=== PATIENT | male | born 1965 | race Two or more races ===

== ENCOUNTER 2021-02-26 20:10 | Inpatient (IN) | payer MEDICAID, SELFPAY ==
[~2021-02-26] VITALS: Ht 175.3 cm; Wt 82.1 kg
--- NOTE | 2021-02-26 23:30 | NUR ---
MESSAGED DR ALMEIDA EARLIER TO OBTAIN ADMISSION ORDERS FOR THE PATIENT. MD AWARE AND STATED HE WILL PUT THE ORDER LATER AND TO MAINTAIN PATIENT O2 > 90% FOR NOW.
[2021-02-26] MEDS ORDERED: LOV40I SUBQ (23:46)
[2021-02-26] MEDS ORDERED: [UNRECOGNIZED DRUG - CODE] IV (23:46)
[2021-02-26] MEDS ORDERED: BENZ-196 PO (23:46)
[2021-02-26] MEDS ORDERED: ROC2I IV (23:46)
[2021-02-26] MEDS ORDERED: FAMO-90 IVP (23:46)
[2021-02-26] MEDS ORDERED: PRED5TAB7 PO (23:46)
[2021-02-26] MEDS ORDERED: [UNRECOGNIZED DRUG - CODE] PO (23:46)
[2021-02-26] MEDS ORDERED: AZIT500P1 IV (23:46)
[2021-02-26] MEDS ORDERED: ALBU0.0912 IH (23:46)
[2021-02-26] MEDS ORDERED: DEXA10SY IVP (23:46)
[2021-02-26] MEDS ORDERED: DOXY-487 PO (23:46)
--- NOTE | 2021-02-26 23:48 | NUR ---
THIS IS AN ADMISSION NOTE FOR A 55 YEAR OLD MALE PATIENT OF DOCTOR JUAN PABLO WITH TRANSFER FROM [facility] FOR TREATMENT OF COVID PNA. HIS HISTORY IS BRIEF WITHOUT MEDICAL CONDITIONS AND HE HAS NOT BEEN TAKING MEDICATION FOR ANY CONDITIONS OTHER THAN THIS COVID 19 EPISODE HE WAS GIVEN VEKLURY, AZITHROMYCIN, DECADRON AND ROCEPHIN. AT [facility] HE REQUIRES OXYGEN AT 6 LITERS VIA FACE MASK. HE WAS ATTENDED BY DOCTOR PAGE IN THE EMERGENCY DEPARTMENT PRIOR TO TRANSFER FOR FURTHER CARE AT [facility]. JASPREET ISIDRO RN
[2021-02-27] VITALS: BP 116/84
[2021-02-27] MEDS ORDERED: DOCUSATE SODIUM 100 MG GELCAP PO PRN (00:20)
[2021-02-27] MEDS ORDERED: ONDANSETRON 4 MG/2 ML VIAL IM/IVP PRN (00:20)
[2021-02-27] MEDS ORDERED: guaiFENesin DM 200/20 MG-10 ML 10 ML UDC PO PRN (00:20)
[2021-02-27] MEDS ORDERED: HYDROcodone/APAP 7.5/325 MG 1 TAB PO PRN (00:20)
[2021-02-27] MEDS ORDERED: POTASSIUM CHLORIDE 10 MEQ TABER PO PRN (00:20)
[2021-02-27] MEDS ORDERED: ALBUTEROL HFA MDI 90 MCG/ACTUATION 8 GM INH PRN (00:25)
[2021-02-27] MEDS ORDERED: remdesivir COMMUNICATION ORDER 1 EA MISC MC PRN (00:25)
[2021-02-27 01:00] LABS: HEMOGLOBIN 13.7 g/dL (12.0-18.0); MEAN CORPUSCULAR HEMOGLOBIN 30 pg (27-31); MEAN CORPUSCULAR HGB CONC 34 g/dL (33-37); MEAN CORPUSCULAR VOLUME 87.3 fL (80-94); PLATELET COUNT (AUTO) 487 K/uL (140-450); RED BLOOD CELL COUNT(AUTO) 4.58 MIL/uL (4.20-6.10); RED CELL DISTRIBUTION WIDTH 13.5 % (11.6-13.7); WHITE BLOOD COUNT (AUTO) 16.2 K/uL (4.8-10.8)
[2021-02-27 01:17] LABS: LYMPHOCYTES % (MANUAL) 7 % (20-46); MONOCYTES % (MANUAL) 4 % (5-12)
[2021-02-27 01:20] LABS: ALBUMIN 2.2 g/dL (3.4-5.0); CARBON DIOXIDE 30.4 mmol/L (21-32); POTASSIUM 4.4 mmol/L (3.5-5.1); TOTAL BILIRUBIN 0.3 mg/dL (0.0-1.0)
[2021-02-27 01:27] LABS: CHOL/HDL RATIO 9.2 (1-4.5); FREE T4 (FREE THYROXINE) 1.01 ng/dL (0.76-1.46); MAGNESIUM 2.5 mg/dL (1.8-2.4); PHOSPHORUS 3.5 mg/dL (2.5-4.9); THYROID STIMULATING HORMONE 0.3 uIU/mL (0.34-3.74)
[2021-02-27 02:11] LABS: PROTHROMBIN TIME 10.9 secs (10.8-13.4)
[2021-02-27] MEDS: NACL 0.9% 1,000 ML IV SCH ×2 (02:37→17:00)
[2021-02-27] MEDS: methylPREDNISolone SS 40 MG/ML VIAL IVP SCH ×3 (02:37→21:00)
[2021-02-27] MEDS: ACETAMINOPHEN 325 MG TAB PO PRN (02:41)
[2021-02-27 03:48] LABS: APPEARANCE,URINE CLEAR (CLEAR); BILIRUBIN,URINE NEGATIVE (NEGATIVE); BLOOD, URINE NEGATIVE (NEGATIVE); COLOR,URINE YELLOW (YELLOW); LEUKOCYTE ESTERASE ,URINE NEGATIVE (NEGATIVE); NITRITE, URINE NEGATIVE (NEGATIVE); UGLUCOSE NEGATIVE (NEGATIVE)
[2021-02-27 04:00] VITALS: BP 94/51
[2021-02-27 04:16] LABS: BARBITURATE, URINE NEGATIVE ng/ml (NEG <=200); BENZODIAZEPINE, URINE NEGATIVE ng/mL (NEG <=200); CANNABINOID, URINE NEGATIVE ng/mL (NEG <=50); COCAINE, URINE NEGATIVE ng/mL (NEG <=300); OPIATE, URINE NEGATIVE ng/mL (NEG <=2000); PHENCYCLIDINE SCREEN,URINE NEGATIVE ng/mL (NEG <=25)
--- NOTE | 2021-02-27 07:04 | NUR ---
PATIENT HAS BEEN SCREENED AND CATEGORIZED MODERATE NUTRITION RISK. PATIENT WILL BE SEEN WITHIN 3-5 DAYS OF ADMISSION. 03/02/21-03/04/21 GUILLERMINA MTZ MS, RDN
--- NOTE | 2021-02-27 07:10 | NUR ---
PATIENT SLEEPING. NO ACUTE DISTRESS NOTED. PATIENT 6L NC. PATIENT O2 SATING AT 92%. CALL LIGHT WITHIN REACH. ALL SAFETY MEASURES IN PLACE. WILL CONTINUE TO MONITOR.
--- NOTE | 2021-02-27 07:25 | NUR ---
Handoff with NELSON Araujo. Kurt Veloz RN
[2021-02-27 08:00] VITALS: BP 100/60
[2021-02-27] MEDS ORDERED: remdesivir CLINICAL MONITORING 1 EA MISC MC PRN (08:25)
[2021-02-27] MEDS ORDERED: REMDESIVIR. 200 MG in NACL 0.9% 100 ML IV SCH (09:00)
[2021-02-27] MEDS: PANTOPRAZOLE 40 MG TABEC PO SCH (09:12)
[2021-02-27] MEDS: ASCORBIC ACID 500 MG TAB PO SCH (09:12)
[2021-02-27] MEDS: ZINC SULF 220 MG CAP PO SCH (09:12)
--- NOTE | 2021-02-27 09:42 | NUR ---
PATIENT AWAKE AND ALERT. NO ACUTE DISTRESS NOTED. PATIENT ON 6 L NC. PATIENT O2 SATING 92%. SCHEDULED MEDICATION GIVEN. ALL SAFETY MEASURES IN PLACE. CALL LIGHT WITHIN REACH. WILL CONTINUE TO MONITOR.
--- NOTE | 2021-02-27 11:10 | NUR ---
PATIENT AWAKE AND ALERT. NO ACUTE DISTRESS NOTED. PATIENT ON 12 L NC. PATIENT O2 SATING 95%. ALL SAFETY MEASURES IN PLACE. CALL LIGHT WITHIN REACH. WILL CONTINUE TO MONITOR.
[2021-02-27 12:00] VITALS: BP 93/61
--- NOTE | 2021-02-27 13:41 | NUR ---
PATIENT AWAKE AND ALERT. NO ACUTE DISTRESS NOTED. PATIENT ON 10 L NC. PATIENT O2 SATING 93%. ALL SAFETY MEASURES IN PLACE. CALL LIGHT WITHIN REACH. WILL CONTINUE TO MONITOR.
--- NOTE | 2021-02-27 15:48 | NUR ---
PATIENT AWAKE AND ALERT. NO ACUTE DISTRESS NOTED. PATIENT ON 8 L NC. PATIENT O2 SATING 96%. ALL SAFETY MEASURES IN PLACE. CALL LIGHT WITHIN REACH. WILL CONTINUE TO MONITOR
[2021-02-27 16:00] VITALS: BP 105/66
--- NOTE | 2021-02-27 17:38 | NUR ---
PATIENT AWAKE AND ALERT. NO ACUTE DISTRESS NOTED. PATIENT WATCHING TV. PATIENT DENIES PAIN AT THIS TIME. PATIENT ON 8 L NC. PATIENT O2 SATING 95%. ALL SAFETY MEASURES IN PLACE. CALL LIGHT WITHIN REACH. WILL CONTINUE TO MONITOR.
--- NOTE | 2021-02-27 19:25 | NUR ---
ENDORSED TO MASKING MACHINE OPERATOR NURSE FOR CONTINUITY OF CARE. PATIENT STABLE.
[2021-02-27 20:00] VITALS: BP 100/61
--- NOTE | 2021-02-27 21:10 | NUR ---
PT RESTING COMFORTABLY IN BED TALKING ON PHONE PT CURRENTLY ON 6L CURAPLEX (NC) PT DENIES SOB AT THIS TIME WILL CONTINUE TO MONITOR
--- NOTE | 2021-02-27 23:25 | NUR ---
PATIENT AWAKE ALERT SLOVENIAN SPEAKING NOT SHORT OF BREATH HAS 8 LITERS OF 02 SAT 98%. lungs diminish on monitor sinus heart rate 60.patient has right arm with 20 ga. infusing n.s 60 hour. temp 99.1 patient has no cough no c/o of pain. patient is covid +.and has pneumonia.
[2021-02-28] VITALS: BP 110/64
--- NOTE | 2021-02-28 02:30 | NUR ---
PT SLEEPING COMFORTABLY W/ NO DISTRESS NOTED WILL CONTINUE TO MONITOR
[2021-02-28] MEDS: NACL 0.9% 1,000 ML IV SCH ×2 (02:42→20:35)
[2021-02-28 04:00] VITALS: BP 115/66
[2021-02-28 07:06] LABS: T4 (THYROXINE) 6.7 ug/dL (4.5-12.0)
--- NOTE | 2021-02-28 07:15 | NUR ---
RECEIVE REPORT FROM WATER VALVE REPAIRER NURSE FOR CONTINUITY OF CARE. PATIENT AWAKE AND ALERT. NO ACUTE DISTRESS NOTED. PATIENT ON 5 L NC. PATIENT O2 SATING 93%. PATIENT DENIES PAIN AT THIS TIME. CALL LIGHT WITHIN REACH. ALL SAFETY MEASURES IN PLACE. WILL CONTINUE TO MONITOR.
[2021-02-28 07:17] LABS: BASOPHILS % (AUTO) 0.1 % (0.0-2.0); HEMATOCRIT 42.4 % (36-52); HEMOGLOBIN 14.4 g/dL (12.0-18.0); LYMPHOCYTES % (AUTO) 6.9 % (20.5-51.1); MEAN CORPUSCULAR HEMOGLOBIN 30 pg (27-31); MEAN CORPUSCULAR HGB CONC 34 g/dL (33-37); MEAN CORPUSCULAR VOLUME 88.1 fL (80-94); MONOCYTES # (AUTO) 0.6 K/uL (0.8-1.0); NEUTROPHILS # (AUTO) 12.6 K/uL (1.8-7.7); PLATELET COUNT (AUTO) 569 K/uL (140-450); RED BLOOD CELL COUNT(AUTO) 4.81 MIL/uL (4.20-6.10); RED CELL DISTRIBUTION WIDTH 13.8 % (11.6-13.7); WHITE BLOOD COUNT (AUTO) 14.2 K/uL (4.8-10.8)
[2021-02-28 07:29] LABS: ALBUMIN 2.3 g/dL (3.4-5.0); ANION GAP 9.8 (8-16); CARBON DIOXIDE 30.3 mmol/L (21-32); CREATININE 0.8 mg/dL (0.6-1.3); POTASSIUM 5.1 mmol/L (3.5-5.1); TOTAL BILIRUBIN 0.4 mg/dL (0.0-1.0)
[2021-02-28 08:00] VITALS: BP 94/55
[2021-02-28] MEDS: ZINC SULF 220 MG CAP PO SCH (09:14)
[2021-02-28] MEDS: PANTOPRAZOLE 40 MG TABEC PO SCH (09:14)
[2021-02-28] MEDS: ASCORBIC ACID 500 MG TAB PO SCH (09:14)
[2021-02-28] MEDS: methylPREDNISolone SS 40 MG/ML VIAL IVP SCH ×2 (09:15→20:27)
--- NOTE | 2021-02-28 09:33 | NUR ---
PATIENT AWAKE AND ALERT. NO ACUTE DISTRESS NOTED. PATIENT ON 7 L NC. PATIENT O2 SATING 90%. PATIENT DENIES PAIN AT THIS TIME. SCHEDULED MEDICATION GIVEN. CALL LIGHT WITHIN REACH. ALL SAFETY MEASURES IN PLACE. WILL CONTINUE TO MONITOR.
--- NOTE | 2021-02-28 09:54 | NUR ---
RECEIVED CALL FROM LAB FOR CRITICAL LAB REPORTING MRSA NARES POSITIVE. INFORMED NURSE AMIRA.
--- NOTE | 2021-02-28 09:55 | NUR ---
NOTIFIED DR. BARAHONA OF PATIENT TESTING POSITIVE FOR MRSA IN THE NARES.
--- NOTE | 2021-02-28 11:48 | NUR ---
PATIENT AWAKE AND ALERT. NO ACUTE DISTRESS NOTED. PATIENT ON 6 L NC. PATIENT O2 SATING 90%. PATIENT DENIES PAIN AT THIS TIME. CALL LIGHT WITHIN REACH. ALL SAFETY MEASURES IN PLACE. WILL CONTINUE TO MONITOR.
[2021-02-28 12:00] VITALS: BP 96/64
[2021-02-28] MEDS: REMDESIVIR. 100 MG in NACL 0.9% 100 ML IV SCH (12:11)
--- NOTE | 2021-02-28 13:24 | NUR ---
PATIENT SLEEPING. BREATHING EVEN AND UNLABORED. NO ACUTE DISTRESS NOTED. PATIENT ON 6 L NC. PATIENT O2 SATING 90. CALL LIGHT WITHIN REACH. ALL SAFETY MEASURES IN PLACE. WILL CONTINUE TO MONITOR.
--- NOTE | 2021-02-28 15:30 | NUR ---
PATIENT AWAKE AND ALERT. NO ACUTE DISTRESS NOTED. PATIENT ON 6 L NC. PATIENT O2 SATING 92%. PATIENT DENIES PAIN AT THIS TIME. CALL LIGHT WITHIN REACH. ALL SAFETY MEASURES IN PLACE. WILL CONTINUE TO MONITOR.
[2021-02-28 16:00] VITALS: BP 107/73
--- NOTE | 2021-02-28 17:39 | NUR ---
PATIENT AWAKE AND ALERT. NO ACUTE DISTRESS NOTED. PATIENT ON 6 L NC. PATIENT O2 SATING 91%. PATIENT DENIES PAIN AT THIS TIME. PARTS CONTROL CLERK AT BEDSIDE AIDING PATIENT WITH ADLS. CALL LIGHT WITHIN REACH. ALL SAFETY MEASURES IN PLACE. WILL CONTINUE TO MONITOR.
--- NOTE | 2021-02-28 19:15 | NUR ---
ENDORSED TO BOOK STORE ASSOCIATE NURSE FOR CONTINUITY OF CARE. PATIENT STABLE.
[2021-02-28 20:00] VITALS: BP 106/65
[2021-02-28] MEDS: ZOLPIDEM 5 MG TAB PO PRN (22:45)
--- NOTE | 2021-02-28 22:50 | NUR ---
PT FOUND ON 10LNC W/ SPO2 < 90% PT WAS REPOSITIONED AND SPO2 92% AND SLOWLY CLIMBING WILL CONTINUE TO MONITOR
--- NOTE | 2021-02-28 23:23 | NUR ---
Assumed care. A/O x 4. On O2 6 liters tolerating well. 2238 C/O difficult breath. O2 = 85%. We have increased the O2 to 10 liters. Despite the increase in O2., Sats remain 85%. RT has been notified. RT has been able to work with him. O2 level at this time is 96% Pt is resting comfortably. Will continue to monitor.
--- NOTE | 2021-02-28 23:51 | NUR ---
Presently O2 sat is 100%. Pt is comfortably. He did receive a sleeping pill 2/2 to inability to sleep. We shall decrease the O2 supply every so often to keep the sats at acceptable levels. Will continue to monitor.
[2021-03-01] VITALS: BP 116/74
--- NOTE | 2021-03-01 02:57 | NUR ---
PT SLEEPING COMFORTABLY ON 10LNC AND WAS TITRATED TO 8LNC W/ SPO2 96% 5MIN POST TITRATION PT TOLERATING TITRATION WELL AT THIS TIME WILL CONTINUE TO MONITOR
[2021-03-01 04:00] VITALS: BP 106/75
--- NOTE | 2021-03-01 05:39 | NUR ---
He has been titrated down to 4 liters of Oxygen. He is comfortable, and the Sats are between 91% and 92%. Will continue to monitor. Should he go any lower in sats, we shall increase the liters of oxygen. Will continue monitor.
--- NOTE | 2021-03-01 06:26 | NUR ---
He is sating 94% on 4 liters of oxygen. Will continue to monitor.
[2021-03-01 06:38] LABS: BASOPHILS % (AUTO) 0.1 % (0.0-2.0); EOSINOPHILS % (AUTO) 0.1 % (0.0-4.0); LYMPHOCYTES # (AUTO) 1.2 K/uL (2.0-11.5); LYMPHOCYTES % (AUTO) 7.7 % (20.5-51.1); MEAN CORPUSCULAR HEMOGLOBIN 30 pg (27-31); MEAN CORPUSCULAR HGB CONC 34 g/dL (33-37); MONOCYTES # (AUTO) 1.1 K/uL (0.8-1.0); MONOCYTES % (AUTO) 6.9 % (1.7-9.3); NEUTROPHILS # (AUTO) 13.8 K/uL (1.8-7.7); NEUTROPHILS % (AUTO) 85.2 % (42.2-75.2); PLATELET COUNT (AUTO) 614 K/uL (140-450); RED CELL DISTRIBUTION WIDTH 13.5 % (11.6-13.7); WHITE BLOOD COUNT (AUTO) 16.2 K/uL (4.8-10.8)
[2021-03-01 06:56] LABS: ALBUMIN 2.1 g/dL (3.4-5.0); ANION GAP 11.1 (8-16); CARBON DIOXIDE 28.7 mmol/L (21-32); CREATININE 0.9 mg/dL (0.6-1.3); POTASSIUM 5.8 mmol/L (3.5-5.1); TOTAL BILIRUBIN 0.6 mg/dL (0.0-1.0)
--- NOTE | 2021-03-01 07:05 | NUR ---
RECEIVED PT FROM HEAD OF MATHEMATICS NURSE. PT STABLE. NO S/S OF DISTRESS. BREATHING SYMMETRICAL. CALL LIGHT IN REACH. ALL SAFETY MEASURES IN PLACE. IV RUNNING PER MD ORDERS. O2 AT 4L NC
--- NOTE | 2021-03-01 07:46 | NUR ---
Care has been endorsed to Karl DAMON
[2021-03-01 08:00] VITALS: BP 85/49
[2021-03-01] MEDS: BACITRACIN OINT 15000 UNITS/30 GM TUBE TP SCH ×2 (09:00→20:59)
--- NOTE | 2021-03-01 09:15 | NUR ---
PATIENT HAS BEEN SCREENED AND CATEGORIZED MODERATE NUTRITION RISK. PATIENT WILL BE SEEN WITHIN 3-5 DAYS OF ADMISSION. 03/02/21-03/04/21 REVIEWED BY GANESH MANCIA RD
[2021-03-01] MEDS: ASCORBIC ACID 500 MG TAB PO SCH (09:17)
[2021-03-01] MEDS: methylPREDNISolone SS 40 MG/ML VIAL IVP SCH ×2 (09:17→21:00)
[2021-03-01] MEDS: PANTOPRAZOLE 40 MG TABEC PO SCH (09:17)
[2021-03-01] MEDS: ZINC SULF 220 MG CAP PO SCH (09:18)
[2021-03-01] MEDS: MUPIROCIN CA NASAL 2% 1GM TUBE NS SCH (09:19)
[2021-03-01] MEDS: CHLORHEXADINE GLUC 2% CLOTH TP SCH ×2 (09:19)
--- NOTE | 2021-03-01 09:56 | NUR ---
PT RESTING IN BED. BREAKFAST AT BEDSIDE. PT STABLE. NO S/S OF DISTRESS. BREATHING SYMMETRICAL. CALL LIGHT IN REACH. ALL SAFETY MEASURES IN PLACE. IV RUNNING PER MD ORDERS. O2 AT 3L NC
--- NOTE | 2021-03-01 11:02 | NUR ---
PT RESTING IN BED. PT STABLE. NO S/S OF DISTRESS. BREATHING SYMMETRICAL. CALL LIGHT IN REACH. ALL SAFETY MEASURES IN PLACE. IV RUNNING PER MD ORDERS. O2 AT 3L NC. O2 MONITOR REPLACED, SAT AT 97%
[2021-03-01 12:00] VITALS: BP 94/59
[2021-03-01] MEDS: REMDESIVIR. 100 MG in NACL 0.9% 100 ML IV SCH (12:59)
--- NOTE | 2021-03-01 13:20 | NUR ---
PT RESTING IN BED. PT STABLE. NO S/S OF DISTRESS. BREATHING SYMMETRICAL. CALL LIGHT IN REACH. ALL SAFETY MEASURES IN PLACE. IV RUNNING PER MD ORDERS. O2 AT 3L NC
--- NOTE | 2021-03-01 14:13 | NUR ---
RECEIVED PT ON 3L NC. SATURATION WAS 93%. PLACED PT ON ROOM AIR FOR HOME O2 QUALIFICATION. SATURATIONS DROPPED TO 83%. TEST ENDED AND OXYGEN TURNED BACK ON TO 3L PT SATURATION RETURNED TO 93%. NO SIGNS OF RESPIRATORY DISTRESS. WILL CONTINUE TO MONITOR.
--- NOTE | 2021-03-01 14:48 | NUR ---
DC PLANNING: PATIENT HAS AN ORDER FOR HOME O2 FAXED TO [facility] CM TO FOLLOW Addendum: 03/02/21 at 1100 by Lesa Sexton RN DC PLANNING: PATIENT IS A TRANSFER FROM [place] WITH A DX OF COVID-19 POSITIVE. PATIENT'S O2 SAT DROPPED TO 82%, ON NON REBREATHER MAST 14L SATING 97% PULMO AND ID FOLLOWING. ADMINISTERED AZITHROMYCIN AND ROCEPHIN IV ABX AND REMDESIVR DAY # 4. DC PLAN TO GO HOME WITH HOME O2, FAXED THE SIGNED FORM TO [facility]. CM TO FOLLOW Addendum: 03/02/21 at 1435 by Lesa Sexton RN DC PLANNING: [facility] DELIVERED THE HOME O2 AT THE HOSPITAL. PER JOSE DAMON HOME O2 IS AT THE BED SIDE. CM TO FOLLOW
--- NOTE | 2021-03-01 15:34 | NUR ---
PT RESTING IN BED. PT STABLE. NO S/S OF DISTRESS. BREATHING SYMMETRICAL. CALL LIGHT IN REACH. ALL SAFETY MEASURES IN PLACE. IV RUNNING PER MD ORDERS. O2 AT TITRATED TO 2L, PT TOLERATING WELL. WILL REASSESS
--- NOTE | 2021-03-01 15:41 | NUR ---
RESIDENT O2 DECREASE TO 2L/MIN BUT O2SAT GOES TO 88-89 PUT BACK TO 3L/MIN. NO DISTRESS NOTED. DENIES PAIN.
[2021-03-01 16:00] VITALS: BP 102/69
--- NOTE | 2021-03-01 17:32 | NUR ---
PT RESTING IN BED. PT STABLE. NO S/S OF DISTRESS. BREATHING SYMMETRICAL. CALL LIGHT IN REACH. ALL SAFETY MEASURES IN PLACE. IV RUNNING PER MD ORDERS. 3L NC, SATURATING 97%
[2021-03-01] MEDS: NACL 0.9% 1,000 ML IV SCH (18:31)
--- NOTE | 2021-03-01 19:07 | NUR ---
NOTIFIED THAT THE LEAD FOR HEART MONITOR IS NOT CONNECTED CHECKED PT. PT AT TOILET AND STATED WAIT I'M ALMOST DONE. WHEN PT GO BACK TO BED HE STATED HE HAD BOWEL MOVEMENT LARGE. PUT BACK LEAD AND O2 SAT NOTED AT 78% AT 3L. I INCREASED TO 4L/MIN BUT O2 SAT STILL AT 88. INSTRUCTED TO HAVE DEEP BREATH. I INFORM RN METAL CUTTER AND SHE ASSESSED PT AND PUT IN HIGHER O2 BUT RESIDENT SATURATION STILL AT 84 SHE CALLED RT. RT ASSESSED RESIDENT AND GAVE BREATHING TREATMENT AND PUT ON 14 L NON REBREATHER MASK SATURATING AT 92% AT THIS TIME CALM. CALL LIGHT WITH IN REACH.
--- NOTE | 2021-03-01 19:16 | NUR ---
1858 rn called patients sats had dropped to 82%. patient given four puffs of his own medication. albuterol. patient changed to nrb mask at 14 l. patiient was on 8l bubble humidifier. sats increased to 94%
--- NOTE | 2021-03-01 19:18 | NUR ---
NOTIFIED AT 1850 THAT PT WAS DESATING TO 78 AT 3L NC. ENROLLMENT COORDINATOR INCREASED TO 4LNC, PT STILL BELOW 90%. ASSESSED PT, REPOSITIONED, AND INSTRUCTED PT ON BREATHING EXERCISES. PT AT 88%. RT NOTIFIED. INCREASED O2 TO 10L NC HIGH FLOW. PT SATURATION STILL BELOW 90%. RT ARRIVED AND ADMINISTERED TREATMENT. PT NOW ON NONREBREATHER AT 14L. SATING IN LOW 90S. CALL LIGHT IN REACH. ALL SAFETY MEASURES IN PLACE
--- NOTE | 2021-03-01 19:23 | NUR ---
ENDORSED PT TO MINOR LEAGUE BASEBALL PLAYER NURSE. PT STABLE. NO S/S OF DISTRESS. BREATHING SYMMETRICAL. CALL LIGHT IN REACH. ALL SAFETY MEASURES IN PLACE. IV RUNNING PER MD ORDERS. NON-REBREATHER AT 14L NC
--- NOTE | 2021-03-01 19:24 | NUR ---
RECEIVED BED SIDE REPORT FROM AM SHIFT RN. PT IS ON A NON-REBREATHER AT 14L. O2 SAT AT 90%. DROPLET ISOLATION FOR COVID PNEUMONIA. A&O X4, URINAL AT BEDSIDE, RUNNING NORMAL SALINE AT 60ML/HR. RAC 20G. SAFETY MEASURES IN PLACE, CALL LIGHT WITHIN REACH, PT STABLE. WILL CONTINUE TO MONITOR.
--- NOTE | 2021-03-01 19:31 | NUR ---
patient on room air. sat% 95%. no sob noted. bs are clear bilaterally
[2021-03-01 20:00] VITALS: BP 114/71
--- NOTE | 2021-03-01 21:03 | NUR ---
ADMINISTERED PTS MEDS. PROVIDED PT EDUCATION ON MEDICATION AND ADVERSE EFFECTS. PT VERBALIZED UNDERSTANDING. PT STABLE. WILL CONTINUE TO MONITOR.
[2021-03-01] MEDS: AZITHROMYCIN 500 MG in DEXTROSE 5% 250 ML IV SCH (23:00)
--- NOTE | 2021-03-01 23:50 | NUR ---
COLLECTED COVID PCR AND ANTIGEN FROM PATIENT. SENT TO LAB.
[2021-03-02] VITALS: BP 93/58
[2021-03-02] MEDS ORDERED: cefTRIAXone 1,000 MG VIAL ONE (00:11)
[2021-03-02] MEDS ORDERED: AZITHROMYCIN 500 MG INJ VIAL IV ONE (01:01)
--- NOTE | 2021-03-02 01:17 | NUR ---
PATIENT IS ASLEEP. NO SIGNS OF DISTRESS. PT STABLE WILL CONTINUE TO MONITOR.
--- NOTE | 2021-03-02 03:16 | NUR ---
PATIENT IS ASLEEP. NO SIGNS OF DISTRESS. OBSERVATION OF CHEST RISE AND FALL. WILL CONTINUE TO MONITOR
[2021-03-02 04:00] VITALS: BP 88/50
--- NOTE | 2021-03-02 05:40 | NUR ---
PATIENT IS ASLEEP. O2 SAT 96% ON NON-REBREATHER ON 14L. NO SIGNS OF DISTRESS. WILL CONTINUE TO MONITOR
[2021-03-02 07:03] LABS: BASOPHILS % (AUTO) 0.2 % (0.0-2.0); HEMATOCRIT 40.8 % (36-52); HEMOGLOBIN 13.8 g/dL (12.0-18.0); LYMPHOCYTES # (AUTO) 1.1 K/uL (2.0-11.5); LYMPHOCYTES % (AUTO) 7.1 % (20.5-51.1); MEAN CORPUSCULAR HEMOGLOBIN 29 pg (27-31); MEAN CORPUSCULAR HGB CONC 34 g/dL (33-37); MONOCYTES # (AUTO) 1.1 K/uL (0.8-1.0); MONOCYTES % (AUTO) 6.6 % (1.7-9.3); NEUTROPHILS # (AUTO) 13.8 K/uL (1.8-7.7); NEUTROPHILS % (AUTO) 86.1 % (42.2-75.2); PLATELET COUNT (AUTO) 613 K/uL (140-450); RED BLOOD CELL COUNT(AUTO) 4.69 MIL/uL (4.20-6.10); RED CELL DISTRIBUTION WIDTH 13.7 % (11.6-13.7); WHITE BLOOD COUNT (AUTO) 16.1 K/uL (4.8-10.8)
[2021-03-02 07:11] LABS: ALBUMIN 2.1 g/dL (3.4-5.0); CARBON DIOXIDE 28.8 mmol/L (21-32); CREATININE 0.8 mg/dL (0.6-1.3); POTASSIUM 4.8 mmol/L (3.5-5.1); TOTAL BILIRUBIN 0.3 mg/dL (0.0-1.0)
--- NOTE | 2021-03-02 07:36 | NUR ---
PASSED ON BEDSIDE REPORT TO AM SHIFT RN. PT STABLE
--- NOTE | 2021-03-02 07:37 | NUR ---
RECEIVED REPORT FROM SANITARY ENGINEERING TEACHER NURSE FOR CONTINUITY OF CARE. PATIENT IS IN BED RESTING AT THIS TIME. RESPIRATIONS ARE EVEN AND UNLABORED. PATIENT IS ON NON-REBREATHER AT 14L, SATURATING AT 97%. NO SIGNS OF DISTRESS NOTED. WILL CONTINUE TO MONITOR. CALL LIGHT WITHIN REACH. ALL SAFETY MEASURES IN PLACE.
[2021-03-02 08:00] VITALS: BP 92/58
[2021-03-02] MEDS: ASCORBIC ACID 500 MG TAB PO SCH (08:59)
[2021-03-02] MEDS: ZINC SULF 220 MG CAP PO SCH (09:00)
[2021-03-02] MEDS: PANTOPRAZOLE 40 MG TABEC PO SCH (09:00)
[2021-03-02] MEDS: MUPIROCIN CA NASAL 2% 1GM TUBE NS SCH (09:00)
[2021-03-02] MEDS: methylPREDNISolone SS 40 MG/ML VIAL IVP SCH ×2 (09:01→21:00)
--- NOTE | 2021-03-02 09:01 | NUR ---
ADMINISTERED ALL SCHEDULED MEDICATIONS. EDUCATED PATIENT ON MEDIATION BEING ADMINISTERED AND SIDE EFFECTS. PATIENT VERBALIZED AN UNDERSTANDING. PATIENT IS IN BED AT THIS TIME. RESPIRATIONS ARE EVEN AND UNLABORED. PATIENT IS ON NON-REBREATHER WITH 14L O2. PATIENT SATURATING 98%. NO DISTRESS NOTED. PATIENT IS ALERT AND ORIENTED X4. PATIENT CARDIAC RHYTHM IS SR. PATIENT IS ON REGULAR DIET. ABD IS SOFT, NON-TENDER AND NON-DISTENDED. PATIENT IS CONTINENT OF BOWEL AND BLADDER. PATIENT UTILIZES URINAL AT BEDSIDE. PATIENT SKIN IS WARM, DRY, AND INTACT. PATIENT HAS IV TO RAC, 20G. IV IS INTACT AND PATIENT. NO COMPLAINTS OF PAIN OR DISCOMFORT AT THIS TIME. WILL CONTINUE TO MONITOR. CALL LIGHT WITHIN REACH. ALL SAFETY MEASURES IN PLACE.
[2021-03-02] MEDS: BACITRACIN OINT 15000 UNITS/30 GM TUBE TP SCH ×2 (09:04→21:00)
[2021-03-02] MEDS: CHLORHEXADINE GLUC 2% CLOTH TP SCH ×2 (09:05)
[2021-03-02] MEDS ORDERED: NACL 0.9% 500 ML IV ONE (09:20)
--- NOTE | 2021-03-02 09:20 | NUR ---
DR BARAHONA CALLED REGARDING PATIENT LOW BP. BP IS 92/58. ORDERED BOLUS 500 NS. WILL FOLLOW THROUGH WITH ORDER. WILL CONTINUE TO MONITOR.
--- NOTE | 2021-03-02 10:30 | NUR ---
RE CHECKED PATIENT BP AFTER BOLUS. CURRENT BP IS 100/58. NO COMPLAINTS OF PAIN OR DISCOMFORT. NO COMPLAINTS OF WEAKNESS OR DIZZINESS. WILL CONTINUE TO MONITOR.
[2021-03-02] MEDS: NACL 0.9% 1,000 ML IV SCH ×2 (11:42→23:35)
[2021-03-02 12:00] VITALS: BP 93/54
[2021-03-02] MEDS: REMDESIVIR. 100 MG in NACL 0.9% 100 ML IV SCH (13:14)
--- NOTE | 2021-03-02 13:14 | NUR ---
IV MEDICATION RENDESIVIR ADMINISTERED BY RN. WILL MONITOR FOR S/S OF ADVERSE EFFECTS.
--- NOTE | 2021-03-02 15:40 | NUR ---
WENT TO DO ROUNDS ON PATIENT. PATIENT IN BED ON HIS PHONE. INFORMED PATIENT THAT I WOULD TRY TO LOWER 14L O2 TO SEE HOW HE DOES. PATIENT TOLERATED WELL. 02 SAT AT 96% INITIALLY, THEN DROPPED TO 92%. PATIENT STATED HE WANTED TO KEEP TRYING SO TO GIVE HIM A FEW MINUTES WITH THE NEW LOWERED 02. WILL CONTINUE TO MONITOR.
[2021-03-02 16:00] VITALS: BP 93/58
--- NOTE | 2021-03-02 17:12 | NUR ---
DID ROUNDS ON PATIENT. PATIENT ASKED IF IT WAS POSSIBLE TO STAY AT BEDSIDE WHILE HE AMBULATES TO USE RESTROOM. I STAYED IN ROOM, PATIENT ATTEMPTED TO GET UP TO WALK TO REST ROOM WITHOUT NON-REBREATHER ON. PATIENT COMPLAINED OF FEELING SLIGHTLY SOB. STATED HE WANTED TO WAIT A BIT BEFORE HE TRIES AGAIN. STATED HE WILL CALL WHEN READY. I ASKED IF HE WANTED A BED SIDE COMMODE, PATIENT STATED HE WOULD BE WILLING TO TRY IT.
--- NOTE | 2021-03-02 19:25 | NUR ---
ENDORSED PATIENT TO COAT PRESSER NURSE FOR CONTINUITY OF CARE. PATIENT STABLE.
[2021-03-02 20:00] VITALS: BP 90/59
[2021-03-02] MEDS: AZITHROMYCIN 500 MG in DEXTROSE 5% 250 ML IV SCH (22:12)
[2021-03-02] MEDS: ACETAMINOPHEN 325 MG TAB PO PRN (23:15)
[2021-03-03] VITALS: BP 100/67
--- NOTE | 2021-03-03 01:20 | NUR ---
PATIENT ALERT RESTING IN BED IN ISOLATION FOR COVID +. SINUS ON MONITOR. HAS RIGHT F.A 20 VIVI IN UPPER RIGHT ARM. LUNGS DIMINISH TO LISTEN.HAS N.S INFUSING AT 60 HOUR. PATIENT C/O OF HEADACHE MEDICATED WITH TYLENOL 650MG. INFUSING.S 60 HOUR. NO SIGNS OF RESPIRTORY DISTRESS NOTED.
[2021-03-03 04:00] VITALS: BP 110/66
[2021-03-03 07:00] LABS: BASOPHILS # (AUTO) 0.1 K/uL (0.00-0.22); BASOPHILS % (AUTO) 0.4 % (0.0-2.0); HEMATOCRIT 40.5 % (36-52); HEMOGLOBIN 13.8 g/dL (12.0-18.0); LYMPHOCYTES % (AUTO) 6.1 % (20.5-51.1); MEAN CORPUSCULAR HEMOGLOBIN 30 pg (27-31); MEAN CORPUSCULAR HGB CONC 34 g/dL (33-37); MEAN CORPUSCULAR VOLUME 86.9 fL (80-94); MONOCYTES # (AUTO) 0.5 K/uL (0.8-1.0); MONOCYTES % (AUTO) 2.8 % (1.7-9.3); NEUTROPHILS # (AUTO) 14.7 K/uL (1.8-7.7); NEUTROPHILS % (AUTO) 90.7 % (42.2-75.2); PLATELET COUNT (AUTO) 583 K/uL (140-450); RED BLOOD CELL COUNT(AUTO) 4.66 MIL/uL (4.20-6.10); RED CELL DISTRIBUTION WIDTH 13.4 % (11.6-13.7); WHITE BLOOD COUNT (AUTO) 16.2 K/uL (4.8-10.8)
[2021-03-03 07:10] LABS: CREATININE 0.8 mg/dL (0.6-1.3); TOTAL BILIRUBIN 0.4 mg/dL (0.0-1.0)
--- NOTE | 2021-03-03 07:21 | NUR ---
RECEIVED REPORT FROM SUPERINTENDENT FACTORY NURSE FOR CONTINUITY OF CARE, POC DISCUSSED. PT ON COVID PROTOCOL. PT IS CURRENTLY AT 10L HUMIDIFIED NC SATING AT 94%. PT DECLINES FEELING SOB AND REPORTS "FEELING GOOD" PT IS ON THE TELE MONITOR SHOWING SINUS RHYTHM. PT HAS A RIGHT FOREARM RUNNING NS @ 60ML. PT IS ALERT AND ORIENTED X4. ALL SAFETY MEASURES IN PLACE, CALL LIGHT WITHIN REACH. WILL CONTINUE TO MONITOR.
[2021-03-03 08:00] VITALS: BP 102/62
[2021-03-03] MEDS: BACITRACIN OINT 15000 UNITS/30 GM TUBE TP SCH ×2 (08:18→21:16)
[2021-03-03] MEDS: methylPREDNISolone SS 40 MG/ML VIAL IVP SCH ×2 (08:18→21:08)
[2021-03-03] MEDS: CHLORHEXADINE GLUC 2% CLOTH TP SCH ×2 (08:18→08:19)
[2021-03-03] MEDS: MUPIROCIN CA NASAL 2% 1GM TUBE NS SCH (08:19)
[2021-03-03] MEDS: ZINC SULF 220 MG CAP PO SCH (08:20)
[2021-03-03] MEDS: PANTOPRAZOLE 40 MG TABEC PO SCH (08:20)
[2021-03-03] MEDS: ASCORBIC ACID 500 MG TAB PO SCH (08:20)
--- NOTE | 2021-03-03 08:34 | NUR ---
DIANA MEDICATION ADMINISTERED PER MD ORDER, PT TOLERATED ADMINISTRATION. PT EDUCATION PROVIDED AND PT VERBALIZED UNDERSTANDING. PT IV IS PATENT AND INTACT. PT PROVIDED WITH ALL NEEDS. REASSESSED BP AFTER CNAS BP WAS AT 98/61. REASSESSED AND BP WAS 102/62 HR 70. PT REPORTS BP BASELINE IS LOW. PT IS ON 8L HUMIDIFIED NC AND SATING AT 94%. ALL SAFETY MEASURES IN PLACE, CALL LIGHT WITHIN REACH. WILL CONTINUE TO MONITOR.
--- NOTE | 2021-03-03 10:27 | NUR ---
ROUNDED ON PT, PT RESTING IN BED AND REPORTS NO SOB AND ALL NEEDS ARE MET AT THIS TIME. ALL SAFETY MEASURES IN PLACE, CALL LIGHT WITHIN REACH. WILL CONTINUE TO MONITOR.
--- NOTE | 2021-03-03 11:45 | NUR ---
03/03/21 RD INITIAL ASSESSMENT COMPLETED PLEASE REFER TO NUTRITION ASSESSMENT UNDER CARE ACTIVITY FOR ESTIMATED NUTRITIONAL NEEDS. 1. CONTINUE REGULAR DIET TOLERATED 2. RD TO FOLLOW-UP 3-5 DAYS, MODERATE RISK REVIEWED BY GANESH MANCIA RD
--- NOTE | 2021-03-03 12:01 | NUR ---
PT CALLED ASKING WHY HE IS NOT BEING DISCHARGED HOME YET, EDUCATED PT ON HIS OXYGEN LEVEL AND THE DAMAGE NOT HAVING ENOUGH OXYGEN CAN DO TO YOUR BODY. PT VERBALIZED UNDERSTANDING AND REPORTS ALL OTHER NEEDS ARE MET AT THIS TIME. ALL SAFETY MEASURES IN PLACE, CALL LIGHT WITHIN REACH. WILL CONTINUE TO MONITOR.
[2021-03-03] MEDS: REMDESIVIR. 100 MG in NACL 0.9% 100 ML IV SCH (12:08)
[2021-03-03 13:00] VITALS: BP 94/61
--- NOTE | 2021-03-03 14:39 | NUR ---
PT IS RESTING IN BED WITH NO ACUTE S/S OF DISTRESS, REPORTS ALL NEEDS ARE MET AT THIS TIME. ALL SAFETY MEASURES IN PLACE, CALL LIGHT WITHIN REACH. WILL CONTINUE TO MONITOR.
--- NOTE | 2021-03-03 15:08 | NUR ---
PT IS STABLE IN BED WITH NO ACUTE S/S OF DISTRESS, PT REPORTS ALL NEEDS ARE MET AT THIS TIME. ALL SAFETY MEASURES IN PLACE, CALL LIGHT WITHIN REACH. WILL CONTINUE TO MONITOR.
[2021-03-03 16:00] VITALS: BP 102/56
--- NOTE | 2021-03-03 17:08 | NUR ---
PT IS STABLE IN BED WITH NO ACUTE S/S OF DISTRESS, PT O2 STATUS IS AT 94%. ALL SAFETY MEASURES IN PLACE, CALL LIGHT WITHIN REACH. WILL CONTINUE TO MONITOR.
--- NOTE | 2021-03-03 17:25 | NUR ---
NEW IV FLUIDS STARTED AT A RATE OF 60ML. EDUCATED PT ON VISITOR POLICY AND HIS ORDERED DIET. PT VERBALIZED UNDERSTANDING AND REPORTS ALL NEEDS ARE MET AT THIS TIME. ALL SAFETY MEASURES IN PLACE, CALL LIGHT WITHIN REACH. WILL CONTINUE TO MONITOR.
--- NOTE | 2021-03-03 18:43 | NUR ---
ALL NEEDS HAVE BEEN MET FOR PT THOROUGH OUT THE SHIFT- PT REMAINED STABLE. PT WILL BE ENDORSED TO MATERIAL HANDLING CREW SUPERVISOR.
--- NOTE | 2021-03-03 19:20 | NUR ---
RECEIVED REPORT FROM DAY SHIFT NURSE FOR CONTINUITY OF CARE. PT AWAKE, ALERT AND ORIENTED. RESPIRATIONS ARE EVEN AND UNLABORED. PATIENT IS ON O2 8L VIA NC, SATURATING AT 98%. NO S/SX OF RESPIRATORY OF DISTRESS NOTED. WILL CONTINUE TO MONITOR. CALL LIGHT WITHIN REACH. ALL SAFETY MEASURES IN PLACE.
[2021-03-03 20:00] VITALS: BP 96/46
--- NOTE | 2021-03-03 20:29 | NUR ---
PT WAS SEEN AND ASSESSED. PT ON 8L BUBBLE NASAL CANNULA. SPO2 96% . TITRATED TO 7L. SPO2 94%. PT TOLERATING WELL AT THIS TIME. PT IN NO RESPIRATORY DISTRESS AT THIS TIME. WILL CONTINUE TO MONITOR.
[2021-03-03] MEDS: NACL 0.9% 1,000 ML IV SCH (21:00)
--- NOTE | 2021-03-03 21:15 | NUR ---
DUE MEDICATIONS ADMINISTERED PER MD ORDER, PT TOLERATED WELL.PT NOT IN ANY DISTRESS AT THIS TIME. PT PROVIDED WITH ALL NEEDS. PT IS ON 7L HUMIDIFIED NC WITH O2 SAT AT 96%. ALL SAFETY MEASURES IN PLACE, CALL LIGHT WITHIN REACH. WILL CONTINUE TO MONITOR.
[2021-03-03] MEDS: AZITHROMYCIN 500 MG in DEXTROSE 5% 250 ML IV SCH (22:43)
--- NOTE | 2021-03-03 23:10 | NUR ---
DUE ANTIBIOTICS GIVEN. PT TOLERATED WELL.PT'S O2 SAT AT 97%. NO COMPLAINS AT THIS TIME. ALL PRECAUTIONS IN PLACE.CALL LIGHT WITHIN REACH. WILL CONTINUE TO MONITOR.
[2021-03-04] VITALS: BP 93/62
--- NOTE | 2021-03-04 01:45 | NUR ---
PT SLEEPING ON PRONE POSITION.PT'S O2 SAT AT 96%. NO S/SX OF RESPIRATORY DISTRESS. ALL PRECAUTIONS IN PLACE. WILL CONTINUE TO MONITOR.
--- NOTE | 2021-03-04 03:26 | NUR ---
PT ASLEEP ON PRONE POSITION.PT'S O2 SAT AT 95%. NO S/SX OF RESPIRATORY DISTRESS. ALL PRECAUTIONS IN PLACE. WILL CONTINUE TO MONITOR.
[2021-03-04 04:00] VITALS: BP 97/48
--- NOTE | 2021-03-04 06:40 | NUR ---
PT STABLE. NO ACUTE EVENTS THROUGHOUT THE NIGHT.NO S/SX OF DISTRESS.NO COMPLAINS AT THIS TIME.PT'S O2 SAT AT 98%. ALL NEEDS ATTENDED.SAFETY PRECAUTIONS IN PLACE.WILL ENDORSE TO AM SHIFT NURSE.
[2021-03-04 06:41] LABS: ANION GAP 9.6 (8-16); CARBON DIOXIDE 29.3 mmol/L (21-32); CREATININE 0.9 mg/dL (0.6-1.3); POTASSIUM 4.9 mmol/L (3.5-5.1)
[2021-03-04 06:45] LABS: BASOPHILS # (AUTO) 0.2 K/uL (0.00-0.22); BASOPHILS % (AUTO) 1.1 % (0.0-2.0); HEMATOCRIT 40.3 % (36-52); HEMOGLOBIN 13.7 g/dL (12.0-18.0); LYMPHOCYTES # (AUTO) 1.1 K/uL (2.0-11.5); LYMPHOCYTES % (AUTO) 5.6 % (20.5-51.1); MEAN CORPUSCULAR HEMOGLOBIN 30 pg (27-31); MEAN CORPUSCULAR HGB CONC 34 g/dL (33-37); MEAN CORPUSCULAR VOLUME 87.4 fL (80-94); MONOCYTES # (AUTO) 1.1 K/uL (0.8-1.0); MONOCYTES % (AUTO) 5.5 % (1.7-9.3); NEUTROPHILS # (AUTO) 16.9 K/uL (1.8-7.7); NEUTROPHILS % (AUTO) 87.8 % (42.2-75.2); PLATELET COUNT (AUTO) 583 K/uL (140-450); RED BLOOD CELL COUNT(AUTO) 4.61 MIL/uL (4.20-6.10); RED CELL DISTRIBUTION WIDTH 13.7 % (11.6-13.7); WHITE BLOOD COUNT (AUTO) 19.2 K/uL (4.8-10.8)
--- NOTE | 2021-03-04 07:16 | NUR ---
PT ENDORSED TO AM SHIFT NURSE FOR CONTINUITY OF CARE. PT IS STABLE.
--- NOTE | 2021-03-04 07:25 | NUR ---
RECEIVED REPORT FROM DIP PAINTER NURSE FOR CONTINUITY OF CARE, POC DISCUSSED. PT IS ASLEEP ON HIS BACK WITH CHEST RISING AND FALLING EVEN AND UNLABORED. PT IS ON 7L HUMIDIFIED NC SATING A 96%. PT IS ON TELEMONITOR SHOWING SINUS RHYTHM. PT HAS A LEFT FOREARM 20G RUNNING NS @ 60ML. MD ORDERED INCENTIVE SPIROMETER, WILL FOLLOW UP TO ENSURE PTS EDUCATED. ALL SAFETY MEASURES IN PLACE, CALL LIGHT WITHIN REACH. WILL CONTINUE TO MONITOR.
[2021-03-04] MEDS: ALBUTEROL SULFATE/IPRATROPIU 3 ML SOL IH SCH ×3 (07:50→19:00)
[2021-03-04 08:00] VITALS: BP 94/58
[2021-03-04] MEDS: methylPREDNISolone SS 40 MG/ML VIAL IVP SCH ×2 (08:36→21:28)
[2021-03-04] MEDS: ASCORBIC ACID 500 MG TAB PO SCH (08:37)
[2021-03-04] MEDS: BACITRACIN OINT 15000 UNITS/30 GM TUBE TP SCH ×2 (08:37→20:09)
[2021-03-04] MEDS: MUPIROCIN CA NASAL 2% 1GM TUBE NS SCH (08:37)
[2021-03-04] MEDS: PANTOPRAZOLE 40 MG TABEC PO SCH (08:37)
[2021-03-04] MEDS: CHLORHEXADINE GLUC 2% CLOTH TP SCH (08:38)
[2021-03-04] MEDS: LORATADINE 10 MG TAB PO SCH (08:38)
[2021-03-04] MEDS: ZINC SULF 220 MG CAP PO SCH (08:38)
--- NOTE | 2021-03-04 08:48 | NUR ---
DIANA MEDICATION ADMINISTERED PER MD ORDER, PT EDUCATION PROVIDED. PT TOLERATED ADMINISTRATION. PT IV IS PATENT AND INTACT. PT IS ON 7L BUBBLE NC SATING AT 90%. EDUCATION PROVIDED REGARDING INCENTIVE SPIROMETER. ALL QUESTIONS OF PATIENTS PLAN OF CARE HAS BEEN ANSWERED. COMMUNICATION BOARD HAS BEEN UPDATED. PT IS SITTING UP IN BED EATING BREAKFAST AND REPORTS ALL NEEDS ARE CURRENTLY MET. ALL SAFETY MEASURES IN PLACE, CALL LIGHT WITHIN REACH. WILL CONTINUE TO MONITOR.
--- NOTE | 2021-03-04 10:23 | NUR ---
PT PCR NEGATIVE, PT HAS BEEN TAKEN OFF OF COVID PROTOCOL. PT ON MRSA PROTOCOL. PT IS IN BED USING INCENTIVE SPIROMETER. PT REPORTS ALL NEEDS ARE MET. ALL SAFETY MEASURES IN PLACE, CALL LIGHT WITHIN REACH. WILL CONTINUE TO MONITOR.
--- NOTE | 2021-03-04 10:56 | NUR ---
PT HAS BEEN DOWNGRADED TO MED SURG PER MD ORDER. TELEMONITOR HAS BEEN REMOVED AND PLACED BACK IN THE TELEMONITOR ROOM. PT STABLE STATING HE IS FEELING BETTER. ALL SAFETY MEASURES IN PLACE, CALL LIGHT WITHIN REACH. WILL CONTINUE TO MONITOR.
[2021-03-04 12:00] VITALS: BP 90/51
--- NOTE | 2021-03-04 12:26 | NUR ---
NEW FLUIDS HAVE BEEN STARTED FOR PATIENT. PT IS SITTING UP IN BED EATING LUNCH AND REPORTS ALL NEEDS ARE CURRENTLY MET. PT ON 7L BUBBLE NC SATING AT 92%. ALL SAFETY MEASURES IN PLACE, CALL LIGHT WITHIN REACH. WILL CONTINUE TO MONITOR.
[2021-03-04] MEDS: NACL 0.9% 1,000 ML IV SCH (12:33)
--- NOTE | 2021-03-04 14:04 | NUR ---
PT IS COMFORTABLE IN BED AND REPORTS ALL NEEDS ARE MET, PT SATING AT 92% ON 7L BUBBLE NC. ALL SAFETY MEASURES IN PLACE, CALL LIGHT WITHIN REACH. WILL CONTINUE TO MONITOR.
[2021-03-04 16:00] VITALS: BP 97/53
--- NOTE | 2021-03-04 16:24 | NUR ---
ALL VITAL SIGNS ARE STABLE AND PT REPORTS ALL NEEDS ARE MET.
--- NOTE | 2021-03-04 17:22 | NUR ---
ALL PT QUESTIONS HAVE BEEN ANSWERED AND PROVIDED WITH FRESH WATER. ALL SAFETY MEASURES IN PLACE, CALL LIGHT WITHIN REACH. WILL CONTINUE TO MONITOR.
--- NOTE | 2021-03-04 19:32 | NUR ---
PT IS STABLE AND ENDORSED TO SALES AND IN HOME DELIVERY SPECIALIST NURSE.
--- NOTE | 2021-03-04 19:33 | NUR ---
RECEIVED REPORT FROM MORNING SHIFT FOR CONTINUITY OF CARE. PATIENT IS STABLE IN BED. A&OX4. VERBALLY RESPONSIVE AND ABLE TO COMMUNICATE NEED. DENIES PAIN AT THIS TIME. NO APPARENT S/SX OF ACUTE DISTRESS. BREATHING EVEN AND UNLABORED. ON 7L NC WITH AN O2 SAT OF 93%. RIGHT FOREARM 20G PATENT/INTACT WITH NS INFUSING AT 60 ML/HOUR. PLAN OF CARE AND WHITE COMMUNICATION BOARD UPDATED. BED IN LOW/LOCKED POSITION. CALL LIGHT WITHIN REACH. ENCOURAGED PATIENT TO CALL FOR ANY NEEDS/ASSISTANCE. WILL CONTINUE TO MONITOR.
[2021-03-04 20:00] VITALS: BP 103/50
--- NOTE | 2021-03-04 20:00 | NUR ---
Patient's Plan of Care was discussed and reviewed with HOWIE BATEMAN.
--- NOTE | 2021-03-04 20:09 | NUR ---
ADMINISTERED SCHEDULED MEDICATIONS PER MD ORDER. PATIENT DENIES PAIN AT THIS TIME. NO APPARENT S/SX OF ACUTE DISTRESS. WHITE BOARD COMMUNICATION UPDATED. ALL SAFETY MEASURES IN PLACE. CALL LIGHT WITHIN REACH. WILL CONTINUE TO MONITOR.
[2021-03-04] MEDS: AZITHROMYCIN 500 MG in DEXTROSE 5% 250 ML IV SCH (23:49)
--- NOTE | 2021-03-05 00:02 | NUR ---
ROUNDED ON PATIENT. STABLE AND AWAKE. O2 SAT OF 90% AT 5L VIA NC. EDUCATED PATIENT THAT GOAL IS TO TOLERATE 5L AND SAT >90%. PATIENT VERBALIZED UNDERSTANDING. DENIES PAIN AT THIS TIME. RESPIRATIONS EVEN AND UNLABORED. NO APPARENT S/SX OF ACUTE DISTRESS. WHITE COMMUNICATION BOARD UPDATED. ALL SAFETY MEASURES IN PLACE. CALL LIGHT WITHIN REACH. WILL CONTINUE TO MONITOR.
--- NOTE | 2021-03-05 00:47 | NUR ---
ANSWERED CALL LIGHT. PATIENT IS REQUESTING SLEEP AID. WILL ADMINISTER PRN AMBIEN PER MD ORDER.
[2021-03-05] MEDS: ZOLPIDEM 5 MG TAB PO PRN (00:49)
--- NOTE | 2021-03-05 01:45 | NUR ---
PATIENT C/O IV SITE FEELING HOT. ASSESSED FOR INFILTRATION. IV SITE FLUSHED WELL. CHANGED IV SITE DRESSING. PATIENT REPORTED THAT THE HOT FEELING AROUND IV SITE WENT AWAY. EMPTIED URINAL WITH AN OUTPUT OF 700ML AND CHARACTERISTIC OF CLEAR YELLOW. PATIENT DENIES PAIN AT THIS TIME. RESPIRATIONS EVEN AND UNLABORED. NO APPARENT S/SX OF ACUTE DISTRESS. WHITE BOARD COMMUNICATION UPDATED. ALL SAFETY MEASURES IN PLACE. CALL LIGHT WITHIN REACH. WILL CONTINUE TO MONITOR.
--- NOTE | 2021-03-05 03:45 | NUR ---
CHECKED PATIENT. STABLE AND ASLEEP. O2 SAT OF 95% AT 5L VIA NC. CHEST RISING AND FALLING. RESPIRATIONS EVEN AND UNLABORED. NO APPARENT S/SX OF ACUTE DISTRESS. WHITE COMMUNICATION BOARD UPDATED. ALL SAFETY MEASURES IN PLACE. CALL LIGHT WITHIN REACH. WILL CONTINUE TO MONITOR.
--- NOTE | 2021-03-05 05:45 | NUR ---
ASSESSED PATIENT'S LUNGS. LUNG SOUNDS CLEAR BILATERALLY. O2 SAT OF 91% ON 5L VIA NC. PATIENT DENIES PAIN AT THIS TIME. RESPIRATIONS EVEN AND UNLABORED. NO APPARENT S/SX OF ACUTE DISTRESS. WHITE COMMUNICATION BOARD UPDATED. ALL SAFETY MEASURES IN PLACE. CALL LIGHT WITHIN REACH. WILL CONTINUE TO MONITOR.
[2021-03-05] MEDS: NACL 0.9% 1,000 ML IV SCH (06:20)
[2021-03-05 07:01] LABS: BASOPHILS % (AUTO) 0.2 % (0.0-2.0); HEMATOCRIT 39.9 % (36-52); HEMOGLOBIN 13.4 g/dL (12.0-18.0); LYMPHOCYTES # (AUTO) 0.8 K/uL (2.0-11.5); LYMPHOCYTES % (AUTO) 5.7 % (20.5-51.1); MEAN CORPUSCULAR HEMOGLOBIN 30 pg (27-31); MEAN CORPUSCULAR HGB CONC 34 g/dL (33-37); MEAN CORPUSCULAR VOLUME 88.5 fL (80-94); MONOCYTES # (AUTO) 1.1 K/uL (0.8-1.0); MONOCYTES % (AUTO) 7.8 % (1.7-9.3); NEUTROPHILS # (AUTO) 12.5 K/uL (1.8-7.7); NEUTROPHILS % (AUTO) 86.3 % (42.2-75.2); PLATELET COUNT (AUTO) 505 K/uL (140-450); RED CELL DISTRIBUTION WIDTH 13.9 % (11.6-13.7); WHITE BLOOD COUNT (AUTO) 14.4 K/uL (4.8-10.8)
[2021-03-05 07:09] LABS: ANION GAP 11.8 (8-16); CARBON DIOXIDE 28.4 mmol/L (21-32); CREATININE 0.9 mg/dL (0.6-1.3); POTASSIUM 5.2 mmol/L (3.5-5.1)
[2021-03-05] MEDS: ALBUTEROL SULFATE/IPRATROPIU 3 ML SOL IH SCH ×2 (07:23→13:21)
--- NOTE | 2021-03-05 07:29 | NUR ---
ENDORSED PATIENT TO MORNING SHIFT FOR CONTINUITY OF CARE. PATIENT IS STABLE.
--- NOTE | 2021-03-05 07:30 | NUR ---
CRITIAL VALUE REPORTED FOR BS AT 460. MD ORDERED FOR INSULIN.
--- NOTE | 2021-03-05 07:35 | NUR ---
RECEIVED REPORT FROM NIGHT NURSE FOR CONTINUITY OF CARE, POC DISCUSSED. PT BREATHING IS EVEN AND UNLABORED ON 3L. PT IS AAOX4. PT SKIN INTACT. PT IV IS PATENT AND INTACT. ALL SAFETY MEASURES IN PLACE, CALL LIGHT WITHIN REACH.
[2021-03-05] MEDS: CHLORHEXADINE GLUC 2% CLOTH TP SCH (09:00)
[2021-03-05] MEDS ORDERED: DEXTROSE 50% 50 ML SYR IVP PRN (09:05)
[2021-03-05] MEDS: ZINC SULF 220 MG CAP PO SCH (09:39)
[2021-03-05] MEDS: BACITRACIN OINT 15000 UNITS/30 GM TUBE TP SCH (09:39)
[2021-03-05] MEDS: LORATADINE 10 MG TAB PO SCH (09:39)
[2021-03-05] MEDS: methylPREDNISolone SS 40 MG/ML VIAL IVP SCH (09:39)
[2021-03-05] MEDS: PANTOPRAZOLE 40 MG TABEC PO SCH (09:40)
[2021-03-05] MEDS: INSULIN LISPRO SLIDING SCALE 100 UNITS/ML VIAL SUBQ PRN ×2 (09:44→15:57)
[2021-03-05] MEDS: MUPIROCIN CA NASAL 2% 1GM TUBE NS SCH (09:45)
[2021-03-05] MEDS: ASCORBIC ACID 500 MG TAB PO SCH (09:46)
[2021-03-05] MEDS: BLOOD GLUCOSE MONITORING 1 DEV DEV FS SCH ×2 (11:30→15:54)
[2021-03-05] MEDS ORDERED: VITC500 PO (14:22)
[2021-03-05] MEDS ORDERED: METF-1243 PO (14:22)
[2021-03-05] MEDS ORDERED: LORA10TA19 PO (14:22)
[2021-03-05] MEDS ORDERED: ALBU0.0912 IH (14:22)
[2021-03-05] MEDS ORDERED: PANT40EC56 PO (14:22)
[2021-03-05] MEDS ORDERED: ZINC220C29 PO (14:22)
[2021-03-05] MEDS ORDERED: DEXT30SU56 PO (14:22)
[2021-03-05] MEDS ORDERED: INSULIN LISPRO 100 UNITS/ML VIAL SUBQ SCH (14:30)
[2021-03-05] MEDS ORDERED: SODIUM POLYSTYRENE 15 GM/60 ML UDBTL PO SCH (14:36)
[2021-03-05 15:11] VITALS: BP 96/66
--- NOTE | 2021-03-05 16:45 | NUR ---
PT IS ON RA. SIGNED ALL DC PAPERWORK. ALL QUESTIONS ANSWERED. IV IS INTACT. HELPED PT WITH HIS PORTABLE AND HOME O2 TO THE [employer] CAR OUTSIDE. PT IS STABLE.
[2021-03-05] MEDS ORDERED: metFORMIN 500 MG TAB PO SCH (17:00)
== END 2021-03-05 16:45 | disposition home or self-care (01) | DRG 720 ==
LOC: MTU 20:10
PROVIDERS: ADMIT Family Medicine; ATTEND Family Medicine
PROC: XW033E5 Introduction of Remdesivir Anti-infective into Peripheral Vein, Percutaneous Approach, New Technology Group 5 (ICD-10-PCS; principal; 2021-02-28)
DX: A41.9 Sepsis, unspecified organism (principal); J96.00 Acute respiratory failure, unspecified whether with hypoxia or hypercapnia; J12.82 Pneumonia due to coronavirus disease 2019; E43 Unspecified severe protein-calorie malnutrition; U07.1 COVID-19; G92.9 Unspecified toxic encephalopathy; E87.1 Hypo-osmolality and hyponatremia; F15.10 Other stimulant abuse, uncomplicated; T43.621A Poisoning by amphetamines, accidental (unintentional), initial encounter; T38.0X5A Adverse effect of glucocorticoids and synthetic analogues, initial encounter; Z68.26 Body mass index [BMI] 26.0-26.9, adult; Z87.891 Personal history of nicotine dependence; Z22.322 Carrier or suspected carrier of Methicillin resistant Staphylococcus aureus; Y92.89 Other specified places as the place of occurrence of the external cause
CPT/HCPCS: 36415; 71045; 80048; 80053; 80305; 81003; 82150; 83036; 83615; 83690; 83735; 83880; 84100; 84436; 84439; 84443; 84479; 84484; 85025; 85379; 85610; 85651; 85730; 86140; 86886; 86900; 86901; 87081; 94640; J0456; J0696; J1644; J1815; J2920; J3535; J7060; Q0092; U0003